=== PATIENT | male | born 1955 | race Caucasian/White ===

== ENCOUNTER 2020-04-01 07:35 | Emergency (ER) | payer OTHER ==
[~2020-04-01] VITALS: Ht 170.2 cm; Wt 99.8 kg
[2020-04-01] MEDS ORDERED: CLONAZEPAM 0.50.5 M1 (07:50)
[2020-04-01] MEDS ORDERED: SEROQUEL 100 M100 M1 PO (07:51)
[2020-04-01 09:13] LABS: ABSOLUTE BASOPHILS 0.1 thou/uL (0.0-0.2); ABSOLUTE EOSINOPHILS 0.2 thou/uL (0.0-0.7); ABSOLUTE LYMPHOCYTES 1.5 thou/uL (0.8-5.3); ABSOLUTE MONOCYTES 0.4 thou/uL (0.0-1.2); ABSOLUTE NEUTROPHILS 3.2 thou/uL (1.6-8.1); EOSINOPHILS 3.1 %; HEMATOCRIT 43.1 % (42.0-52.0); HEMOGLOBIN 14.9 gm/dL (14.0-18.0); LYMPHOCYTES 28.2 %; MCH 29.7 pg (26.0-34.0); MCHC 34.6 g/dL (28.0-37.0); MCV 85.9 fL (80.0-100.0); MONOCYTES 7.9 %; MPV 7.7 fl. (7.2-11.1); NUCLEATED RBCS 0 /100WBC; PLATELET COUNT* 187 thou/uL (150-400); POLYS 59.8 %; RBC 5.02 mil/uL (4.50-6.00); RDW-CV 13.3 % (10.5-14.5); WBC 5.4 thou/uL (4.0-11.0)
[2020-04-01 09:32] LABS: CALCIUM 8.7 mg/dL (8.5-10.1); CREATININE 1.5 mg/dL (0.6-1.3); POTASSIUM 4.6 mmol/L (3.5-5.1)
[2020-04-01 09:37] LABS: ALBUMIN 3.4 g/dL (3.4-5.0); TOTAL BILIRUBIN 0.3 mg/dL (<0.1-1.0); TOTAL PROTEIN 6.9 g/dL (6.4-8.2)
[2020-04-01] MEDS ORDERED: ZPAK PO (10:16)
[2020-04-01 10:28] VITALS: BP 110/77
== END 2020-04-01 10:28 | disposition home or self-care (01) ==
LOC: M.ERS 07:35
PROVIDERS: Personal Emergency Response Attendant
DX: J06.9 Acute upper respiratory infection, unspecified (principal); Z20.828 Contact with and (suspected) exposure to other viral communicable diseases; Z88.0 Allergy status to penicillin

== ENCOUNTER 2020-05-03 08:56 | Inpatient (IN) | payer OTHER ==
[~2020-05-03] VITALS: Ht 172.7 cm; Wt 100.0 kg
[~2020-05-03 08:56] MED LIST: CLONAZEPAM 0.50.5 M1 PO; SEROQUEL 100 M100 M1 PO; ZPAK PO
[2020-05-03 08:57] VITALS: BP 135/99
[2020-05-03] MEDS ORDERED: FLOMAX0.4 MG PO (09:03)
[2020-05-03 10:14] LABS: ABSOLUTE BASOPHILS 0.1 thou/uL (0.0-0.2); ABSOLUTE EOSINOPHILS 0.2 thou/uL (0.0-0.7); ABSOLUTE LYMPHOCYTES 1.6 thou/uL (0.8-5.3); ABSOLUTE MONOCYTES 0.7 thou/uL (0.0-1.2); ABSOLUTE NEUTROPHILS 5.7 thou/uL (1.6-8.1); BASOPHILS 0.8 %; EOSINOPHILS 2.1 %; HEMATOCRIT 44.9 % (42.0-52.0); HEMOGLOBIN 15.5 gm/dL (14.0-18.0); LYMPHOCYTES 19.6 %; MCHC 34.5 g/dL (28.0-37.0); MONOCYTES 8.7 %; MPV 7.5 fl. (7.2-11.1); NUCLEATED RBCS 0 /100WBC; PLATELET COUNT* 209 thou/uL (150-400); POLYS 68.8 %; RBC 5.16 mil/uL (4.50-6.00); WBC 8.3 thou/uL (4.0-11.0)
[2020-05-03 10:17] LABS: CALCIUM 9.1 mg/dL (8.5-10.1); CREATININE 1.7 mg/dL (0.6-1.3); POTASSIUM 4.4 mmol/L (3.5-5.1)
[2020-05-03 10:21] LABS: ALBUMIN 3.5 g/dL (3.4-5.0); TOTAL BILIRUBIN 0.6 mg/dL (<0.1-1.0); TOTAL PROTEIN 7.4 g/dL (6.4-8.2)
[2020-05-03 10:29] LABS: APTT 24.5 Seconds (25.0-31.3); PROTIME 10.1 Seconds (9.20-11.50)
[2020-05-03] MEDS ORDERED: LODINE400 M1 PO (12:36)
[2020-05-03] MEDS ORDERED: FLUOXETINE HCL40 MG PO (12:36)
[2020-05-03] MEDS ORDERED: DESYREL150 MG PO (12:36)
[2020-05-03] MEDS ORDERED: PROTONIX40 M2 PO (12:37)
[2020-05-03] MEDS ORDERED: BUPROPION XL300 MG PO (12:37)
[2020-05-03 13:38] VITALS: BP 120/81
[2020-05-03 13:46] LABS: CHOLESTEROL 184 mg/dL (<200); HDL CHOLESTEROL 48 mg/dL (>40); LDL CHOLESTEROL 121 mg/dL (<100); TC:HDL 3.8 Ratio (Not establshd); TRIGLYCERIDE 79 mg/dL (<150); VLDL 16 mg/dL (<40)
[2020-05-03 13:48] LABS: SERUM ASSESSMENT Clear
--- NOTE | 2020-05-03 15:29 | 2DMMODE ---
[place] [address] 2 D/M-MODE ECHOCARDIOGRAM Name: GRAY PEGUERO Room: [address] Harmony Jones#: [id number] Admission: 05/03/20 Attend Phys: Cristiano Razo Discharge: Date of : 59 Date of Service: 05/03/20 1528 Report #: [id number] THIS REPORT FOR: cc: Sherry Osorio Angela Jo RNP Holkins, John M. MD [facility] ~ APPROVED REPORT Study performed: 05/03/2020 14:01:59 EXAM: Comprehensive 2D, Doppler, and color-flow Echocardiogram Patient Location: In-Patient Room #: [facility] Status: routine BSA: 2.13 HR: 64 bpm BP: 120/81 mmHg Rhythm: NSR Other Information Study Quality: Good Indications Chest Pain 2D Dimensions IVSd: 12.67 (7-11mm) LVOT Diam: 21.52 (18-24mm) LVDd: 53.10 mm PWd: 10.79 (7-11mm) Ascending Ao: 35.34 (22-36mm) LVDs: 37.80 (25-40mm) Aortic Root: 35.66 mm Volumes Left Atrial Volume (Systole) LA ESV Index: 23.50 mL/m2 Aortic Valve AoV Peak Manas.: 1.12 m/s AO Peak Gr.: 5.06 mmHg LVOT Max P.69 mmHg AO Mean Gr.: 3.03 mmHg LVOT Mean P.68 mmHg LVOT Max V: 0.96 m/s AO V2 VTI: 25.74 cm LVOT Mean V: 0.59 m/s JERONIMO (VTI): 2.92 cm2 LVOT V1 VTI: 20.64 [place] [address] 2 D/M-MODE ECHOCARDIOGRAM Name: GRAY PEGUERO Room: [address]R.#: [id number] Admission: 05/03/20 Attend Phys: Cristiano Razo Discharge: Date of : 59 Date of Service: 05/03/20 1528 Report #: [id number] Mitral Valve E/A Ratio: 1.14 MV Decel. Time: 184.40 ms MV E Max Manas.: 0.66 m/s MV PHT: 53.48 ms MVA (PHT): 4.11 cm2 TDI E/Lateral E': 5.50 E/Medial E': 6.00 Medial E' Manas.: 0.11 m/s Lateral E' Manas.: 0.12 m/s Pulmonary Valve PV Peak Manas.: 0.90 m/s PV Peak Gr.: 3.23 mmHg Left Ventricle The left ventricle is normal size. There is normal LV segmental wall motion. There is normal left ventricular wall thickness. Left ventricular systolic function is normal. The left ventricular ejection fraction is within the normal range. LVEF is 55%. The left ventricular diastolic function is normal. Right Ventricle The right ventricle is normal size. The right ventricular systolic function is normal. Atria The left atrium size is normal. The right atrium size is normal. Aortic Valve The aortic valve is normal in structure. No aortic regurgitation is present. There is no aortic valvular stenosis. Mitral Valve The mitral valve is normal in structure. There is no mitral valve regurgitation noted. No evidence of mitral valve stenosis. Tricuspid Valve The tricuspid valve is normal in structure. Unable to assess PA pressure. Trace tricuspid regurgitation. Pulmonic Valve The pulmonary valve is normal in structure. Trace [place] [address] 2 D/M-MODE ECHOCARDIOGRAM Name: GRAY PEGUERO Room: [address]#: [id number] Admission: 05/03/20 Attend Phys: Cristiano Razo Discharge: Date of : 59 Date of Service: 05/03/20 1528 Report #: [id number] Great Vessels The aortic root is normal in size. IVC is normal in size and collapses >50% with inspiration. Pericardium There is no pericardial effusion. <Conclusion> The left ventricle is normal size. There is normal left ventricular wall thickness. Left ventricular systolic function is normal. The left ventricular ejection fraction is within the normal range. LVEF is 55%. The left ventricular diastolic function is normal. The right ventricle is normal size. The left atrium size is normal. The aortic valve is normal in structure. The mitral valve is normal in structure. The tricuspid valve is normal in structure. IVC is normal in size and collapses >50% with inspiration. There is no pericardial effusion. There is normal LV segmental wall motion. <ELECTRONICALLY SIGNED> By: Ubaldo Miller MD, FACC 05/03/20 1528 1528 1528 Ubaldo Miller MD, FACC /INF
--- NOTE | 2020-05-03 16:39 | EKG ---
[place] [address] ELECTROCARDIOGRAM REPORT Name: MARIELENAGRAY E Room: [address] M.R.#: [id number] Admission: 05/03/20 Attend Phys: Cristiano Razo Discharge: Date of : 59 Date of Service: 05/03/2000 Report #: [id number] THIS REPORT FOR: //name// [facility] ED Test Date: 2020-05-03 Test Time: 09:00:12 Pat Name: GRAY PEGUERO Department: Room: [facility] Gender: M Application Developer: THEODORE : 1955 Requested By: Columba Reyes Order Number: [id number] MD: Ubaldo Miller Measurements Intervals [place] Rate: 85 P: 56 LA: 157 QRS: 27 QRSD: 98 T: 70 QT: 476 QTc: 567 Interpretive Statements Sinus rhythm Borderline abnrm T, anterolateral leads Prolonged QT interval Baseline wander in lead(s) V1,V2 No previous ECG available for comparison Electronically Signed On 05-03-2020 16:39:29 CDT by Ubaldo Miller [email or web address] <ELECTRONICALLY SIGNED> By: Ubaldo Miller MD, [facility] 05/03/20 1639 9 9 Ubaldo Miller MD, [facility] /EPI
[2020-05-03 20:00] VITALS: BP 126/86
[2020-05-04] VITALS: BP 110/65
[2020-05-04 04:00] VITALS: BP 125/73
[2020-05-04 04:35] LABS: ABSOLUTE EOSINOPHILS 0.1 thou/uL (0.0-0.7); ABSOLUTE LYMPHOCYTES 1.5 thou/uL (0.8-5.3); ABSOLUTE MONOCYTES 0.8 thou/uL (0.0-1.2); ABSOLUTE NEUTROPHILS 4.7 thou/uL (1.6-8.1); BASOPHILS 0.4 %; EOSINOPHILS 1.8 %; HEMATOCRIT 40.4 % (42.0-52.0); HEMOGLOBIN 14.1 gm/dL (14.0-18.0); LYMPHOCYTES 20.8 %; MCH 30.1 pg (26.0-34.0); MCHC 34.8 g/dL (28.0-37.0); MCV 86.5 fL (80.0-100.0); MONOCYTES 10.9 %; MPV 7.1 fl. (7.2-11.1); NUCLEATED RBCS 0 /100WBC; PLATELET COUNT* 167 thou/uL (150-400); POLYS 66.1 %; RBC 4.67 mil/uL (4.50-6.00); WBC 7.1 thou/uL (4.0-11.0)
[2020-05-04 04:52] LABS: CALCIUM 8.8 mg/dL (8.5-10.1); CREATININE 1.3 mg/dL (0.6-1.3); POTASSIUM 4.2 mmol/L (3.5-5.1); TOTAL BILIRUBIN 0.8 mg/dL (<0.1-1.0); TOTAL PROTEIN 6.6 g/dL (6.4-8.2)
[2020-05-04 08:00] VITALS: BP 136/85
[2020-05-04 13:12] VITALS: BP 121/78
[2020-05-04 16:57] VITALS: BP 107/65
[2020-05-04 20:00] VITALS: BP 112/62
[2020-05-05] VITALS: BP 104/61
[2020-05-05 04:00] VITALS: BP 98/53
[2020-05-05 08:00] VITALS: BP 104/81
[2020-05-05 12:00] VITALS: BP 125/77
[2020-05-05 17:28] VITALS: BP 126/81
[2020-05-05 20:00] VITALS: BP 118/83
[2020-05-06 00:36] VITALS: BP 122/74
[2020-05-06 04:00] VITALS: BP 136/77
[2020-05-06 04:37] LABS: HEMOGLOBIN 13.8 gm/dL (14.0-18.0); NUCLEATED RBCS 0 /100WBC; RDW-CV 13.8 % (10.5-14.5); WBC 5.9 thou/uL (4.0-11.0)
[2020-05-06 04:40] LABS: ABSOLUTE BASOPHILS 0.1 thou/uL (0.0-0.2); ABSOLUTE EOSINOPHILS 0.1 thou/uL (0.0-0.7); ABSOLUTE LYMPHOCYTES 1.7 thou/uL (0.8-5.3); ABSOLUTE MONOCYTES 0.5 thou/uL (0.0-1.2); ABSOLUTE NEUTROPHILS 3.5 thou/uL (1.6-8.1); BASOPHILS 1.1 %; EOSINOPHILS 2.5 %; HEMATOCRIT 39.2 % (42.0-52.0); LYMPHOCYTES 28.7 %; MCH 30.1 pg (26.0-34.0); MCHC 35.1 g/dL (28.0-37.0); MCV 85.6 fL (80.0-100.0); MPV 7.2 fl. (7.2-11.1); PLATELET COUNT* 193 thou/uL (150-400); POLYS 59.7 %; RBC 4.58 mil/uL (4.50-6.00)
[2020-05-06 05:03] LABS: ALBUMIN 2.8 g/dL (3.4-5.0); CALCIUM 8.8 mg/dL (8.5-10.1); CREATININE 1.4 mg/dL (0.6-1.3); POTASSIUM 4.1 mmol/L (3.5-5.1); TOTAL BILIRUBIN 0.4 mg/dL (<0.1-1.0); TOTAL PROTEIN 6.4 g/dL (6.4-8.2)
[2020-05-06 08:51] VITALS: BP 133/70
[2020-05-06] MEDS ORDERED: ELIQUIS5 MG PO (09:09)
[2020-05-06] MEDS ORDERED: LEVOFLOXACIN500 MG PO (09:22)
[2020-05-06 11:11] VITALS: BP 133/70
[2020-05-07 19:07] LABS: ANA INTERPRETATION Negative (())
--- NOTE | 2020-05-13 08:52 | CON ---
[address] [address] CONSULTATION Name: GRAY PEGUERO Room: [address] M.R.#: [id number] Admission: 05/04/20 Attend Phys: Susu Pierce Discharge: 05/06/20 Date of : 59 Report #: [id number] THIS REPORT FOR: //name// cc: Sherry Osorio Angela Jo RNP ~ THIS REPORT FOR: //name// CC: Sherry Razo DATE OF SERVICE: 05/03/2020 REQUESTING PHYSICIAN: Consult has been requested by Dr. Razo. INDICATION FOR CONSULTATION: Acute pulmonary emboli. HISTORY OF PRESENT ILLNESS: This is a 65-year-old gentleman with past medical history includes a history of pulmonary emboli 14 years ago. The patient was anticoagulated for a while and then was taken off anticoagulation. The creatinine performed about a month ago as an outpatient, which is 1.5. I do not have information regarding the patient's baseline creatinine available. He has a clinical history, which is suspicious of obstructive sleep apnea, not previously diagnosed. He does not have any history of any other heart or lung disease. According to the records, the patient was in the Emergency Room about a month ago and was having a cough with yellow sputum production and he was seen in the Emergency Room and treated with azithromycin. The patient states that he does not have a recollection of this. The patient now came to the Emergency Room complaining of chest pain with respiration and coughing. He has also been bringing up small amounts of clear as well as white sputum. He did have some increase in shortness of breath as well. There are no upper respiratory complaints. There is no fever or chills. There is no swelling of lower extremities or calf pain. The patient says he has had some leg pain, longstanding. This has not changed or worsened recently. He has had disturbed sleep at night as well as sleepiness during the day. These complaints are at baseline. The patient answers to the negative for 12 questions for review of systems except as mentioned above. PAST MEDICAL HISTORY: Pulmonary emboli 14 years ago. Creatinine 1.5 about a month ago, unknown as to whether this is the patient's baseline. There is no documented history of kidney disease, anxiety, depression, long-term proton pump inhibitor use for gastrointestinal symptoms possibly gastroesophageal reflux disease, prostatism. Pulmonary emboli 14 [place] [address] CONSULTATION Name: GRAY PEGUERO Room: [address]#: [id number] Admission: 05/04/20 Attend Phys: Susu Pierce Discharge: 05/06/20 Date of : 59 Report #: [id number] SOCIAL HISTORY: He is a truckload owner operator. No known history of smoking, ethanol abuse or drug abuse. CURRENT MEDICATIONS: List in [facility] reviewed. HOME MEDICATIONS: List also in [facility] reviewed. FAMILY HISTORY: There is no pertinent family history. ALLERGIES: He has had ALLERGY TO PENICILLIN; HOWEVER, TOLERATES CEPHALOSPORINS WITHOUT PROBLEMS. PHYSICAL EXAMINATION: GENERAL: He is alert, awake and oriented. He says it is painful to breathe and therefore he is uncomfortable. He is on room air, he is maintaining O2 saturation in the high 90s. VITAL SIGNS: The pulse of 77 and a blood pressure of 120/80, respiratory rate 16. He is afebrile with a temperature of 36.7, body mass index is elevated to 33.5. HEENT: Head is normocephalic and atraumatic. Pupils are equal and reactive. There is no throat erythema. Airway is narrow. It is Mallampati 3. NECK: Does not show raised JVP, asymmetry, mass or lymph nodes. CHEST: Symmetrical expansion on inspection and palpation. On auscultation, chest is essentially clear. HEART: Regular. There is no murmur. ABDOMEN: Soft and nontender. EXTREMITIES: Lower extremities show no edema, no calf tenderness. SKIN: Dry and intact. NEUROLOGICAL: Moves all extremities bilaterally equally and spontaneously with no focal deficit identified. LABORATORY DATA: The patient's CTA chest films as well as report are reviewed. The patient does have small bilateral pulmonary emboli. There are scattered bilateral pulmonary infiltrates noted as well, which are more than what would be expected, more consistent with pulmonary infarction. The patient's CBC as well as chemistries from this morning in [facility] reviewed. Coagulation studies are in progress. D-dimer was elevated. PT and PTT were normal. COVID-19 screen was negative. The patient's venous Dopplers are negative for DVT. The patient's echocardiogram shows a left ventricular ejection fraction of 55% without significant elevation in right heart pressures. ASSESSMENT AND PLAN: 1. Bilateral pulmonary emboli. While these are small in size, this is the second time that the patient has had spontaneous clot. Note that the patient's is sick and therefore he has had a different routine for the last few days; however, there is no immobility other than the patient is [place] truck[place] [address] CONSULTATION Name: GRAY PEGUERO Room: [address]#: [id number] Admission: 05/04/20 Attend Phys: Susu Pierce Discharge: 05/06/20 Date of : 59 Report #: [id number] usually drives long distances. I agree with anticoagulation. The duration of anticoagulation remains to be determined. It appears likely that he will need anticoagulation lifelong. There is a hypercoagulability workup ordered. I ordered additional testing as well. We may consider after following his creatinine to perform another CT in about 3 months and then evaluate further. 2. Pulmonary infiltrates/pneumonia. The infiltrates are more than I would expect from any infarction that may occur from the small pulmonary emboli. Therefore, the patient is on ceftriaxone and I agree with this. The patient recently received azithromycin, which will make it less likely that he will have atypical infection. Therefore, I did not broaden antibiotic coverage for now. In case he deteriorates, I will have a low threshold of doing the same. If he improves, then in the next 1-2 days, ceftriaxone, could be switched over to cefdinir p.o. Considering renal insufficiency it does not fully define as to whether this is new or old. His creatinine was 1.5 a month ago. It is 1.7 now, I do not have any other creatinine available. Considering that he received IV dye I feel that we should keep him well hydrated. I went ahead and ordered 1 liter of Ringer's lactate overnight. Recommend rechecking creatinine tomorrow and then reassessing. I will go ahead and obtain a renal ultrasound as well. The patient does have a history of prostatism. 3. Hypersomnia/sleep disturbances. He says that her previous home sleep study was unremarkable; however, his history is consistent with obstructive sleep apnea. If the patient is interested, then I will be happy to arrange for him an outpatient sleep study shortly after discharge. Thanks for this consultation. <ELECTRONICALLY SIGNED> By: Juan M Henson MD 05/13/20 0852 1653 1725Aale Henson MD /nt
== END 2020-05-06 13:08 | disposition home or self-care (01) | DRG 177 ==
LOC: M.ERS 08:56 → M.TBA-ER 10:57 → M.2W 10:57
PROVIDERS: Internal Medicine Critical Care Medicine; Personal Emergency Response Attendant; ADMIT Internal Medicine; ATTEND Internal Medicine
DX: J15.6 Pneumonia due to other Gram-negative bacteria (principal); I26.99 Other pulmonary embolism without acute cor pulmonale; N17.0 Acute kidney failure with tubular necrosis; J98.11 Atelectasis; G47.10 Hypersomnia, unspecified; N18.3 Chronic kidney disease, stage 3 (moderate); K21.9 Gastro-esophageal reflux disease without esophagitis; Z20.828 Contact with and (suspected) exposure to other viral communicable diseases; N40.0 Benign prostatic hyperplasia without lower urinary tract symptoms; F41.9 Anxiety disorder, unspecified; F32.9 Major depressive disorder, single episode, unspecified; Z79.899 Other long term (current) drug therapy; Z88.0 Allergy status to penicillin; Z86.711 Personal history of pulmonary embolism; Z88.8 Allergy status to other drugs, medicaments and biological substances

== ENCOUNTER 2020-10-29 06:54 | Emergency (ER) | payer OTHER ==
[~2020-10-29] VITALS: Ht 165.1 cm; Wt 104.3 kg
[~2020-10-29 06:54] MED LIST changes: +BUPROPION XL300 MG PO; +DESYREL150 MG PO; +ELIQUIS5 MG PO; +FLOMAX0.4 MG PO; +FLUOXETINE HCL40 MG PO; +LEVOFLOXACIN500 MG PO; +LODINE400 M1 PO; +PROTONIX40 M2 PO
[2020-10-29] MEDS ORDERED: VENLAFAXINE H37.5 MG PO (07:12)
[2020-10-29] MEDS ORDERED: EUTHYROX50 MCG PO (07:12)
[2020-10-29 07:25] LABS: ABSOLUTE BASOPHILS 0.1 thou/uL (0.0-0.2); ABSOLUTE EOSINOPHILS 0.6 thou/uL (0.0-0.7); ABSOLUTE LYMPHOCYTES 1.6 thou/uL (0.8-5.3); ABSOLUTE MONOCYTES 0.6 thou/uL (0.0-1.2); BASOPHILS 0.4 %; EOSINOPHILS 4.1 %; HEMATOCRIT 45.1 % (42.0-52.0); HEMOGLOBIN 15.2 gm/dL (14.0-18.0); LYMPHOCYTES 10.6 %; MCH 28.7 pg (26.0-34.0); MCHC 33.8 g/dL (28.0-37.0); MONOCYTES 3.8 %; MPV 7.5 fl. (7.2-11.1); NUCLEATED RBCS 0 /100WBC; PLATELET COUNT* 241 thou/uL (150-400); POLYS 81.1 %; RBC 5.31 mil/uL (4.50-6.00); RDW-CV 13.8 % (10.5-14.5); WBC 14.8 thou/uL (4.0-11.0)
[2020-10-29 07:37] LABS: CALCIUM 10.7 mg/dL (8.5-10.1); CREATININE 1.4 mg/dL (0.6-1.3); POTASSIUM 4.6 mmol/L (3.5-5.1)
[2020-10-29 07:42] LABS: ALBUMIN 3.5 g/dL (3.4-5.0); TOTAL BILIRUBIN 0.5 mg/dL (<0.1-1.0)
[2020-10-29 10:06] VITALS: BP 146/91
--- NOTE | 2020-10-29 12:48 | EKG ---
[place] [address] ELECTROCARDIOGRAM REPORT Name: GRAY PEGUERO Room: [facility]#: [id number] Admission: 10/29/20 Attend Phys: Discharge: 10/29/20 Date of : 59 Date of Service: 10/29/20 0729 Report #: [id number] THIS REPORT FOR: //name// [facility] ED Test Date: 2020-10-29 Test Time: 07:29:14 Pat Name: GRAY PEGUERO Department: Room: Gender: Client Service Executive: S : 1955 Requested By: Kaushik Eastman Order Number: [id number] MD: Coleman Rutledge Measurements Intervals [place] Rate: 86 P: 52 GA: 157 QRS: 32 QRSD: 89 T: 84 QT: 334 QTc: 400 Interpretive Statements Sinus rhythm Borderline T abnormalities, anterior leads Compared to ECG 05/03/2020 09:00:12 Prolonged QT interval no longer present Electronically Signed On 10-29-2020 12:48:27 COMMERCIAL HVAC TECHNICIAN by Coleman Rutledge [email or web address] <ELECTRONICALLY SIGNED> By: Coleman Rutledge MD, [facility] 10/29/20 1248 0729 Coleman Rutledge MD, [facility] /EPI
== END 2020-10-29 10:07 | disposition home or self-care (01) ==
LOC: M.ERS 06:54
PROVIDERS: Emergency Medicine
DX: K21.9 Gastro-esophageal reflux disease without esophagitis (principal); D72.829 Elevated white blood cell count, unspecified; M19.90 Unspecified osteoarthritis, unspecified site; Z88.0 Allergy status to penicillin; Z86.711 Personal history of pulmonary embolism

== ENCOUNTER → 2020-11-26 | Outpatient (CLI) | payer OTHER ==
[~2020-11-26] MED LIST changes: +EUTHYROX50 MCG PO; +HYDROCODON-ACE1 EAC7 PO; +NORCO5 PO; +VENLAFAXINE H37.5 MG PO
== END ==
LOC: M.LAB 07:52
PROVIDERS: ATTEND Orthopaedic Surgery
DX: Z01.812 Encounter for preprocedural laboratory examination (principal); Z20.822 Contact with and (suspected) exposure to COVID-19

== ENCOUNTER → 2020-11-29 | Day surgery (SDC) | payer OTHER ==
--- NOTE | ~2020-11-29 | OP ---
[facility] [place] [address] OPERATIVE REPORT Name: GRAY PEGUERO Room: [facility].#: [id number] Admission: 11/29/20 Attend Phys: Sherry Kam DO Discharge: Date of : 59 Report #: [id number] THIS REPORT FOR: cc: Sherry Osorio Angela Jo RNP Walker, Angela DO ~ DICTATED BY: Justin Marte DO DATE OF SERVICE: 11/29/2020 PREOPERATIVE DIAGNOSIS: Right great toe hallux rigidus. POSTOPERATIVE DIAGNOSIS: Right great toe hallux rigidus. PROCEDURE: Right great toe metatarsophalangeal joint arthrodesis, utilizing the Arthrex MaxForce plate system. SURGEON: Sherry Kam DO LABORATORY MECHANIC HELPER: Justin Marte DO ANESTHESIA: General with regional blocks. FLUIDS: Crystalloid. ESTIMATED BLOOD LOSS: Minimal. DRAINS: None. SPECIMENS: None. COMPLICATIONS: None. CONDITION: Stable. DISPOSITION: PACU to home. PREOPERATIVE ANTIBIOTICS: Two grams Ancef. INDICATIONS: The patient is a 65-year-old male with longstanding right foot pain located about the MTP joint of his right foot. He presented to our Orthopedic Clinic and attempted conservative treatment, but did not improve. We discussed proceeding with an arthrodesis of his great toe. Risks, complications, alternatives were discussed with him and he elected to proceed. Please see the clinic note for full details of that conversation. [place] [address] OPERATIVE REPORT Name: GRAY PEGUERO Room: [facility].#: [id number] Admission: 11/29/20 Attend Phys: Sherry Kam DO Discharge: Date of : 59 Report #: [id number] DESCRIPTION OF PROCEDURE: The patient was seen in the preoperative area. The operative site was marked. He was then transferred to the operating suite and placed in supine position on the operating table. He was given 2 grams Ancef IV piggyback. He was given the benefit of general anesthesia. Local block was performed, well-padded pneumatic tourniquet was placed to the right thigh and was inflated to 250 mmHg for approximately 43 minutes during the case. Right lower extremity was prepped and draped in the usual sterile fashion. Timeout was performed verifying correct patient, procedure, procedure site. All parties agreed. Next, the right lower extremity was then exsanguinated and the tourniquet was inflated to 250 mmHg. Incision was made centered over the first metatarsal of the right foot continuing into the proximal phalanx. Sharp dissection was carried down to the level of bone. Neurovascular and tendinous structures were protected. The MTP joint was then exposed. Collateral ligaments were released. Rongeur was used to remove all osteophytes from either side of the joint. Next, a K-wire was then placed on the center of the canal of the first metatarsal. Next a 22 mm concave reamer was then used to ream away the metatarsal head down to a healthy appearing bone, the K-wire was then removed from the metatarsal head and then placed into the proximal phalanx of the great toe as both of these positions were confirmed to be correct with multiplanar C-arm imaging, then the convex reamer was then used to prepare the phalangeal side of the joints to healthy appearing bone. Next, K-wire was then removed. The MTP joint was then placed in a slight dorsiflexion and held into place with a K-wire. Next, an appropriately sized MaxForce compression plate was placed, spanning the MTP joint. This was held into place with 2 BB-Poncho on either side of the joint. Next, the distal locking screws, the MaxForce plate were drilled, measured and appropriately set screws were placed in the 3 distal holes. Next, the geared MaxForce compression screw was then placed into the plate. The BB tack was removed and the gear was used to apply an appropriate amount of compression across the joint while holding compression a proximal bicortical screw was then drilled, measured and placed locking the plate and compression. The gear screw was then removed, 2 more proximal screws were then drilled, measured and placed in the metatarsal. This achieved good compression across the joint. A C-arm was then brought in planar imaging confirmed appropriate position and compression of the joints. These images were saved. The wound was then irrigated with sterile saline. The capsule was then closed over the plate with [id number] 2-0 Vicryl sutures, subcutaneous layer was then closed with interrupted 2-0 Vicryl sutures and the skin was closed with a running 3-0 nylon suture. A sterile dressing was placed with Xeroform, 4 x 4s, Kerlix, Cedric. Tourniquet was let down for a total time of 43 minutes. The patient was awakened from anesthesia and transferred [place] [address] OPERATIVE REPORT Name: GRAY PEGUERO Room: [facility]#: [id number] Admission: 11/29/20 Attend Phys: Sherry Kam DO Discharge: Date of : 59 Report #: [id number] PACU in stable condition. Counts were performed verifying correct x 2. Dr. Kam was present for all critical aspects of the case. By: [id number] 1521Arylie Kam DO /nt
[2020-11-29 10:55] LABS: HEMATOCRIT 44.7 % (42.0-52.0); MCH 28.7 pg (26.0-34.0); MCHC 33.6 g/dL (28.0-37.0); MCV 85.3 fL (80.0-100.0); MPV 7.4 fl. (7.2-11.1); RBC 5.24 mil/uL (4.50-6.00); RDW-CV 13.9 % (10.5-14.5); WBC 6.3 thou/uL (4.0-11.0)
[2020-11-29 11:02] LABS: CALCIUM 9.4 mg/dL (8.5-10.1); CREATININE 1.3 mg/dL (0.6-1.3); POTASSIUM 4.2 mmol/L (3.5-5.1)
--- NOTE | 2020-11-29 16:05 | EKG ---
[place] [address] ELECTROCARDIOGRAM REPORT Name: GRAY PEGUERO Room: [facility]#: [id number] Admission: 11/29/20 Attend Phys: Sherry Kam DO Discharge: Date of : 59 Date of Service: 11/29/20 1134 Report #: [id number] THIS REPORT FOR: //name// [facility] Test Date: 2020-11-29 Test Time: 11:34:03 Pat Name: GRAY PEGUERO Department: Room: Gender: Dungeon Master: [place] : 1955 Requested By: Sherry Kam Order Number: [id number] Reading MD: Coleman Rutledge Measurements Intervals [place] Rate: 60 P: 39 SD: 152 QRS: 16 QRSD: 96 T: 58 QT: 368 QTc: 368 Interpretive Statements Sinus rhythm Abnormal R-wave progression, early transition Compared to ECG 10/29/2020 07:29:14 T-wave abnormality no longer present Electronically Signed On 11-29-2020 16:05:05 CDT by Coleman Rutledge [email or web address] <ELECTRONICALLY SIGNED> By: Coleman Rutledge MD, [facility] 11/29/20 1605 1134 1134 Coleman Rutledge MD, [facility] /EPI
== END | disposition home or self-care (01) ==
LOC: M.SUR 07:50
PROVIDERS: ATTEND Orthopaedic Surgery
DX: M20.21 Hallux rigidus, right foot (principal); M25.571 Pain in right ankle and joints of right foot; N40.0 Benign prostatic hyperplasia without lower urinary tract symptoms; F32.9 Major depressive disorder, single episode, unspecified; F41.9 Anxiety disorder, unspecified; K21.9 Gastro-esophageal reflux disease without esophagitis; Z98.890 Other specified postprocedural states; Z79.899 Other long term (current) drug therapy; Z86.711 Personal history of pulmonary embolism; Z79.01 Long term (current) use of anticoagulants; Z88.0 Allergy status to penicillin

== ENCOUNTER 2021-04-21 07:45 | Emergency (ER) | payer OTHER ==
[~2021-04-21] VITALS: Ht 167.6 cm; Wt 104.3 kg
[2021-04-21] MEDS ORDERED: PREDNISONE 20 M20 M1 PO (09:21)
[2021-04-21] MEDS ORDERED: LEVAQUIN 500 M500 MG PO (09:21)
[2021-04-21] MEDS ORDERED: TESSALON PERLE100 MG PO (09:21)
[2021-04-21 09:38] VITALS: BP 125/77
== END 2021-04-21 09:39 | disposition home or self-care (01) ==
LOC: M.ERS 07:45
DX: J18.9 Pneumonia, unspecified organism (principal); Z20.822 Contact with and (suspected) exposure to COVID-19; F41.9 Anxiety disorder, unspecified; F32.9 Major depressive disorder, single episode, unspecified; K21.9 Gastro-esophageal reflux disease without esophagitis; M19.90 Unspecified osteoarthritis, unspecified site; Z79.891 Long term (current) use of opiate analgesic; Z79.899 Other long term (current) drug therapy; Z88.0 Allergy status to penicillin

== ENCOUNTER 2021-04-30 10:32 | Emergency (ER) | payer OTHER ==
[~2021-04-30] VITALS: Ht 167.6 cm; Wt 106.6 kg
[~2021-04-30 10:32] MED LIST changes: +LEVAQUIN 500 M500 MG PO; +PREDNISONE 20 M20 M1 PO; +TESSALON PERLE100 MG PO
[2021-04-30] MEDS ORDERED: PROMETHAZINE-C473 ML PO (14:04)
[2021-04-30] MEDS ORDERED: MUCINEX600 MG PO (14:05)
[2021-04-30] MEDS ORDERED: VENTOLIN HFA 1818 GM INH (14:05)
[2021-04-30 14:33] VITALS: BP 111/75
== END 2021-04-30 14:33 | disposition home or self-care (01) ==
LOC: M.ERS 10:32
DX: J18.9 Pneumonia, unspecified organism (principal); Z20.822 Contact with and (suspected) exposure to COVID-19; F41.9 Anxiety disorder, unspecified; F32.9 Major depressive disorder, single episode, unspecified; M19.90 Unspecified osteoarthritis, unspecified site; K21.9 Gastro-esophageal reflux disease without esophagitis; Z88.0 Allergy status to penicillin